=== PATIENT | male | born 1970 | race Caucasian/White ===

== ENCOUNTER 2017-05-14 15:40 | Emergency (ER) | payer OTHER ==
--- NOTE | 2017-05-14 19:11 | RAD ---
AP VIEW OF THE CHEST 05/14/17 INDICATION: History of cough. COMPARISON: None. FINDINGS: There are linear opacities involving the left lung base which can be seen with bronchiolitis. No air space consolidation is seen to suggest the presence a pneumonia. No pleural effusion is noted. The cardiomediastinal silhouette is normal appearing. No acute osseous abnormality is evident. IMPRESSION: Some linear opacities within the left lower lobe can be seen with a bronchiolitis. POS: [facility]
== END 2017-05-14 19:10 | disposition home or self-care (01) ==
LOC: ERS 15:40
DX: J06.9 Acute upper respiratory infection, unspecified (principal)
CPT/HCPCS: 71010